=== PATIENT | male | born 1970 | race African-American/Black ===

== ENCOUNTER 2021-06-22 15:14 | Emergency (ER) | payer MEDICAID ==
[~2021-06-22] VITALS: Ht 170.2 cm; Wt 73.0 kg
[~2021-06-22 15:14] MED LIST: ABILIFY; BENADRYL; IBUPROFEN; NEURONTIN
[2021-06-22 18:18] VITALS: BP 152/73
== END 2021-06-22 18:19 | disposition home or self-care (01) ==
LOC: ER 15:14
DX: Z20.822 Contact with and (suspected) exposure to COVID-19 (principal); J45.909 Unspecified asthma, uncomplicated
CPT/HCPCS: 87426; 99283

== ENCOUNTER 2022-08-27 21:29 | Emergency (ER) | payer MEDICAID, OTHER ==
[~2022-08-27] VITALS: Ht 185.4 cm; Wt 100.0 kg
[2022-08-27 21:43] VITALS: BP 138/76
== END 2022-08-28 02:27 | disposition left against medical advice (07) ==
LOC: ER 21:29
DX: Z53.21 Procedure and treatment not carried out due to patient leaving prior to being seen by health care provider (principal); R44.0 Auditory hallucinations; F91.8 Other conduct disorders
CPT/HCPCS: 99281

== ENCOUNTER 2022-10-07 08:08 | Emergency (ER) | payer MEDICAID, OTHER ==
[~2022-10-07] VITALS: Ht 182.9 cm; Wt 91.0 kg
[2022-10-07 09:06] LABS: BASOPHILS % 1.3 % (0.0-2.0); EOSINOPHILS % 0.2 % (0.0-5.0); HEMATOCRIT. 44.3 % (42.0-52.0); HEMOGLOBIN. 14.8 g/dL (14.0-18.0); LYMPHOCYTES % 10.6 % (20.0-50.0); MEAN CORPUSCULAR HEMOGLOBIN 30.2 pg (28.0-32.0); MEAN CORPUSCULAR VOLUME 90.5 fL (80.0-94.0); MONOCYTES % 8.3 % (2.0-8.0); NEUTROPHILS % 79.6 % (40.0-76.0); PLATELET 192 x1000/uL (130-400); RED CELL DISTRIBUTION WIDTH 15.4 % (11.6-14.6)
[2022-10-07 09:13] LABS: CHLORIDE 111 mEq/L (98-107)
[2022-10-07 09:28] LABS: CREATINE KINASE 648 IU/L (39-308); ETHANOL BLOOD 73 mg/dL
[2022-10-07 10:53] VITALS: BP 128/83
[2022-10-07 10:58] LABS: CLARITY URINE CLEAR (CLEAR); COLOR URINE YELLOW (YELLOW); KETONES URINE 2+ (NEGATIVE); LEUKOCYTE ESTERASE URINE NEGATIVE (NEGATIVE); NITRITE URINE NEGATIVE (NEGATIVE); OCCULT BLOOD URINE NEGATIVE (NEGATIVE); PROTEIN URINE NEGATIVE (NEGATIVE); SPECIFIC GRAVITY URINE 1.014 (1.005-1.030)
[2022-10-07 11:25] LABS: *AMPHETAMINES SCREEN URINE NEGATIVE (NEGATIVE); *BARBITURATES SCREEN URINE NEGATIVE (NEGATIVE); *BENZODIAZEPINES SCREEN URINE NEGATIVE (NEGATIVE); *COCAINE SCREEN URINE PRESUMTIVE POSITIVE (NEGATIVE); CANNABINOID URINE SCREEN PRESUMTIVE POSITIVE (NEGATIVE); METHADONE URINE SCREEN NEGATIVE (NEGATIVE); OPIATES URINE SCREEN NEGATIVE (NEGATIVE); PHENCYCLIDINE URINE SCREEN NEGATIVE (NEGATIVE)
== END 2022-10-07 13:15 | disposition home or self-care (01) ==
LOC: ER 08:08
DX: R45.851 Suicidal ideations (principal); I49.9 Cardiac arrhythmia, unspecified; J45.909 Unspecified asthma, uncomplicated; Z98.890 Other specified postprocedural states; Z20.822 Contact with and (suspected) exposure to COVID-19
CPT/HCPCS: 36415; 80053; 80305; 80307; 80320; 80329; 81003; 82140; 82550; 84443; 85025; 87426; 93005; 99284; C9803; G0480

== ENCOUNTER 2024-10-07 19:35 | Emergency (ER) | payer MEDICAID, OTHER ==
[~2024-10-07] VITALS: Ht 182.9 cm; Wt 87.0 kg
[2024-10-07 19:39] VITALS: TEMP 36.9; O2SAT 99
[2024-10-07] MEDS: KETOROLAC 15MG/ML VIAL IM ONE (20:27)
[2024-10-07] MEDS ORDERED: NAPR-1176 MT (20:50)
[2024-10-07 23:56] VITALS: BP 148/97; PULSE 104; RESP 14; O2SAT 97
== END 2024-10-08 00:04 | disposition home or self-care (01) ==
LOC: ER 19:35
DX: S62.304A Unspecified fracture of fourth metacarpal bone, right hand, initial encounter for closed fracture (principal); I10 Essential (primary) hypertension; F32.A Depression, unspecified; J45.909 Unspecified asthma, uncomplicated; F41.9 Anxiety disorder, unspecified; Z98.890 Other specified postprocedural states; X58.XXXA Exposure to other specified factors, initial encounter; Y93.89 Activity, other specified; Y92.89 Other specified places as the place of occurrence of the external cause; Y99.8 Other external cause status
CPT/HCPCS: 99283; 73130; 29125; 96372; J1885

== ENCOUNTER 2024-10-28 20:02 | Emergency (ER) | payer OTHER ==
[~2024-10-28] VITALS: Ht 182.9 cm; Wt 89.0 kg
[~2024-10-28 20:02] MED LIST changes: +NAPR-1176 MT
[2024-10-28 20:03] VITALS: BP 126/86; PULSE 88; RESP 16; TEMP 36.6; O2SAT 95
== END 2024-10-28 21:24 | disposition left against medical advice (07) ==
LOC: ER 20:02
DX: R45.1 Restlessness and agitation (principal); Z53.21 Procedure and treatment not carried out due to patient leaving prior to being seen by health care provider

== ENCOUNTER 2024-10-29 17:32 | Emergency (ER) | payer MEDICAID, OTHER ==
[~2024-10-29] VITALS: Ht 177.8 cm; Wt 95.0 kg
[2024-10-29 17:43] VITALS: BP 110/70; PULSE 80; RESP 16; TEMP 36.9; O2SAT 98
== END 2024-10-30 02:15 | disposition home or self-care (01) ==
LOC: ER 17:32
DX: F10.129 Alcohol abuse with intoxication, unspecified (principal); R44.0 Auditory hallucinations; Z79.1 Long term (current) use of non-steroidal anti-inflammatories (NSAID); Y90.9 Presence of alcohol in blood, level not specified
CPT/HCPCS: 99283